=== PATIENT | male | born 1965 | race Caucasian/White ===

== ENCOUNTER → 2019-02-22 17:34 | Outpatient (CLI) | payer OTHER, SELFPAY ==
--- NOTE | 2019-02-22 17:47 | CT_ITS ---
STUDY: CT ABDOMEN AND PELVIS WITH CONTRAST REASON FOR EXAM: Male, 53 years old. Left lower quadrant pain x2 months. Worse pain at night. Prior inguinal hernia repair as a child. RADIATION DOSAGE (If Supplied By Facility): CTDIvol = ( 16.14 ) mGy, DLP = ( 1141.00 ) mGycm TECHNIQUE: Transaxial images were obtained from the dome of the diaphragm to the symphysis pubis with oral contrast. 100mL IV/Oral Isovue 300 was administered. Sagittal and coronal images were reconstructed. Individualized dose optimization techniques were used for this CT. COMPARISON: None. FINDINGS: The visualized lung bases are unremarkable. The visualized portions of the heart are within normal limits. Normal liver. Normal gallbladder and extrahepatic biliary system. Normal spleen. Normal pancreas. Normal bilateral adrenal glands. 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 No stones or hydronephrosis. Normal left kidney. Normal visualized stomach. Normal small intestine. Normal colon. The appendix is visualized and appears normal. Normal abdominal aorta. Normal inferior vena cava. Normal retroperitoneum. Normal underdistended urinary bladder. Normal abdominal wall. Partial ankylosis of the SI joints. No acute osseous abnormality. CT/Abdomen/Pelvis WITH Contrast IMPRESSION: 1. 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 2. No CT evidence of stones in the kidneys, ureters and bladder. 3. Partial ankylosis of the SI joints. 4. No acute abnormality in the abdomen and pelvis. Electronically Signed: Ritesh Solorzano MD at 8:46 EDT , Service support ,
== END ==
PROVIDERS: Family Provider Family Medicine; PCP Family Medicine; Referring Provider Family Medicine; Visit Provider Family Medicine
DX: R10.32 Left lower quadrant pain (principal)
CPT/HCPCS: 74177; Q9967